=== PATIENT | male | born 1995 | race Hispanic/Latino ===

== ENCOUNTER 2021-09-16 11:30 | Emergency (ER) | payer MEDICAID, OTHER ==
[~2021-09-16] VITALS: Ht 175.3 cm; Wt 104.3 kg
[2021-09-16 11:31] VITALS: BP 130/69
== END 2021-09-16 12:40 | disposition home or self-care (01) ==
LOC: EDH 11:30
DX: Z00.00 Encounter for general adult medical examination without abnormal findings (principal)